=== PATIENT | female | born 1965 | race Caucasian/White ===

== ENCOUNTER 2019-04-25 05:32 | Emergency (ER) | payer BC ==
[~2019-04-25 05:32] MED LIST changes: -CIPR-344 PO
[2019-04-25 05:36] VITALS: BP 152/93
[2019-04-25] MEDS ORDERED: CIPR-344 PO (05:45)
--- NOTE | 2019-04-25 05:48 | ER Report ---
History and Physical Time Seen By MD: 05:33 HPI/ROS CHIEF COMPLAINT: Diarrhea HISTORY OF PRESENT ILLNESS: 33-year-old female just returning from [place]. She's been having diarrhea for 5 days. It slowed down but became much more explosive this morning. Several members of her trip have diarrhea. They suspect food at one of the locations. Patient's been able to stay hydrated. Her friend was treated with Cipro. Patient notes no fever or vomiting. She notes no mucous or blood in her diarrhea. REVIEW OF SYSTEMS: Respiratory: No cough, no dyspnea. Cardiovascular: No chest pain, no palpitations. Gastrointestinal: As above Musculoskeletal: No back pain. Allergies: Coded Allergies: No Known Drug Allergies (Unverified , 04/25/19) Home Meds Active Scripts Ciprofloxacin Hcl 500 Mg Tab (CIPRO 500 MG TAB) 500 Mg Tablet, 500 MG PO BID for infection, #14 Prov:DYLAN GODFREY DO 04/25/19 Reported Medications Escitalopram Oxalate (LEXAPRO) 20 Mg Tablet, 10 MG PO QDAY, TAB 10/23/16 Reviewed Nurses Notes: Yes Old Medical Records Reviewed: Yes Hx Smoking: No Hx Alcohol Use: Yes Constitutional Vital Sign - Last 24 Hours 04/25/19 05:36 Temp 98.2 Pulse 71 Resp 14 B/P (MAP) 152/93 Pulse Ox 90 O2 Delivery Room Air Physical Exam General Appearance: The patient is alert, has no immediate need for airway protection and no current signs of toxicity. Slightly pale appearing, vital signs stable, afebrile, pulse ox normal Eyes: Pupils equal and round no injection. Respiratory: Chest is non tender, lungs are clear to auscultation. Cardiac: regular rate and rhythm Gastrointestinal: Abdomen is soft and non tender, no masses, bowel sounds normal. Musculoskeletal: Neck: Neck is supple and non tender. Extremities have full range of motion and are non tender. Skin: No rashes or lesions. DIFFERENTIAL DIAGNOSIS: After history and physical exam differential diagnosis was considered for abdominal pain including but not limited to appendicitis, cholecystitis, gastritis, gastroenteritis, infectious diarrhea, traveler's diarrhea and urinary tract infection. Medical Decision Making ED Course/Re-evaluation ED Course Patient was admitted to an examination room. H&P was done. The differential diagnoses was considered. On clinical examination. Patient has a benign nonsurgical abdomen. She's been having diarrhea for more than 5 days. Patient was unable to provide a specimen of diarrhea. Patient be treated with Cipro 500 mg by mouth twice a day. She is encouraged to go on a clear liquid diet for 48- 72 hours, to rest her bowels somewhat recover. She is advised ibuprofen for pain relief. Patient was given a specimen container to bring back a diarrhea specimen for culture, Gram stain, white cells and O&P. Decision to Disposition Date: Apr 25, 2019 Decision to Disposition Time: 05:42 Depart Departure Latest Vital Signs Vital Signs Date Time Temp Pulse Resp B/P (MAP) Pulse Ox O2 Delivery O2 Flow Rate FiO2 04/25/19 05:36 98.2 71 14 152/93 90 Room Air Impression: Primary Impression: Travelers' diarrhea Condition: Improved Disposition: HOME OR SELF-CARE New Scripts Ciprofloxacin Hcl 500 Mg Tab (CIPRO 500 MG TAB) 500 Mg Tablet 500 MG PO BID for infection, #14 Prov: DYLAN GODFREY DO 04/25/19 Patient Instructions: Traveler's Diarrhea (ED) Additional Instructions: Follow clear liquid diet for 24-48 hours, then advance to Brat diet, bananas, rice, applesauce and toast DYLAN GODFREY DO Apr 25, 2019 05:48
[2019-04-25] MEDS ORDERED: CIPROFLOXACIN 500 MG TAB PO ONE (05:50)
== END 2019-04-25 06:20 | disposition home or self-care (01) ==
LOC: ER 05:41
DX: R19.7 Diarrhea, unspecified (principal)
CPT/HCPCS: 99283

== ENCOUNTER → 2019-04-25 | Outpatient (REF) | payer BC ==
[~2019-04-25] MED LIST: CIPR-344 PO; ESCI20TA38 PO
== END ==
LOC: ZZSENDIN 09:22
PROVIDERS: ATTEND Emergency Medicine
DX: A09 Infectious gastroenteritis and colitis, unspecified (principal)
CPT/HCPCS: 82274; 83630; 87045